=== PATIENT | male | born 1950 | race Caucasian/White ===

== ENCOUNTER 2016-10-11 07:06 | Day surgery (SDC) | payer OTHER ==
[2016-10-11] MEDS ORDERED: LIDOCAINE HCL 1%, 10 MG/ML (20ML VIAL) ONE (12:05)
--- NOTE | 2016-10-11 13:41 | HP ---
Satellite PMH - Chief Complaint Chief Complaint: Here for lt. iliac crest bone marrow biopsy. no symptoms History Source: Patient Limitations to Obtaining History: No Limitations - Past Medical History Allergies/Adverse Reactions: Allergies Allergy/AdvReac Type Severity Reaction Status Date / Time No Known Allergies Allergy Verified 02/16/14 12:23 Cardiovascular: Yes: HTN, Hyperlipdemia - Current Medications Current Medications: Home Medications Medication Instructions Recorded Amox-Tr/K Cl [Augmentin 875-125mg 1 tab PO BID #14 tablet 02/17/14 Tablet -] Satellite Physical Exam - Physical Examination General Appearance: Well Developed, Alert & Oriented x3 Lung: Clear to auscultation, Normal air movement Heart: Regular rate & rhythm, Normal S1, Normal S2 Abdomen: Soft, No tenderness, Normal bowel sounds Extremities: No edema Neurological: Intact Satellite Impression/Plan - Impression/Plan Impression: 66 y/o patient with erythrocytosis. for elective bone marrow biopsy. tolerated procedure well
--- NOTE | 2016-10-11 13:50 | PROC ---
Bone Marrow Aspiration/Biopsy - Consent Risks and Benefits Explained: Yes Consent on Chart: Yes - Procedure Location: Left Iliac Crest Anesthesia: 1% Lidocaine Sterile Technique: Yes Specimen: Obtained Position: Other (right lateral) Patient tolerated procedure: Well with minimal pain Sterile Dressing Applied: Yes
[2016-10-11 14:13] VITALS: TEMP 98.1
[2016-10-11] MEDS ORDERED: ACETAMINOPHEN 325 MG TABLET (FP) PO ONE (14:15)
[2016-10-11 14:24] VITALS: BP 134/84; PULSE 78
--- NOTE | 2016-10-19 13:52 | PATH ---
Surgical Pathology Report Patient Name: MALA RAMSEY Med. Rec. #: [id number] /Age/Gender: 1950 (Age: 66) / M Account: [id number] Location: [facility] Taken: 10/11/2016 Received: 10/11/2016 Reported: 10/19/2016 Physicians: Liliana العلي M.D. Specimen(s) Received A: BONE MARROW BIOPSY B: BONE MARROW CLOT C: BONE MARROW ASPIRATION SMEARS 10 SLIDES D: BONE MARROW BLOOD 2 GREEN TOPS Clinical History Erythrocytosis, r/o MPD Final Diagnosis A,B,C. BONE MARROW CORE BIOPSY, CLOT SECTION AND ASPIRATE SMEAR: NORMOCELLULAR BONE MARROW WITH ADEQUATELY MATURING TRILINEAGE HEMATOPOIESIS (SEE COMMENT). NO INCREASE OF MYELOBLASTS. Comment: The morphologic findings are nonspecific and not diagnostic for involvement by a myeloproliferative neoplasm. Molecular studies did not detect CALR, MPL, or JAK2 aberrations. Correlation with the results of the cytogenetic studies is also needed. Evolving myeloproliferative neoplasm cannot be completely ruled out. Note: This case was seen in consultation with the Hematology Service at [place], [place] ([id number], Dr. Rin Bautista). The above diagnosis and the comments reflect the consultation opinion. The biopsy shows bone marrow with 30-40% cellularity and adequately maturing trilineage hematopoiesis. Aspirate smears are cellular, spicular with focal fixation artifact. The M:E ratio appears within normal limits. There is complete maturation to segmented neutrophils without dysplasia of the myeloid precursors. CD34+ myeloblasts are not increased. The erythroid precursors are with mild NC asynchrony and focal dyspoiesis of the erythroid precursors. Megakaryocytes are proportional to the cellularity without atypia; very rare loose clusters seen as highlighted with CD61 immunostain. No significant lymphoid or plasma cells infiltrates are present. The iron stain shows 2+/3+ stainable iron. No ringed sideroblasts are seen. Reticulin stain focally is slightly increased. The bony trabeculae are unremarkable. The clot section reflects the findings of the core biopsy. D. BONE MARROW, FLOW CYTOMETRY: Flow Cytometry performed and interpreted at [place], [place] ([id number]) showed the following: INTERPRETATION: In the sample analyzed there is no evidence for abnormal myeloid maturation or an increased blast population. There is no evidence for a lymphoproliferative disorder. Phenotype: There is a mixed population of maturing myeloid cells, B cells and T cells. No abnormal myeloid maturation is seen. There is no increase in CD34 positive blasts and they comprise 1% of the total cells. Granulocytes are 84% and monocytes are 2% of total cells. The B-cells (1.5% of total) appear polytypic. The T-cells (5% of total) show no johnson T-cell antigen deletion. MPD FISH STUDIES PERFORMED AND INTERPRETED AT [place], [place] ([id number]) ARE FOLLOWS: INTERPRETATION: No evidence of deletion 7q or monosomy 7 is present. No evidence of trisomy 8(+8) is present. No evidence of deletion 20q12 is present. No BCR/ABL1 t(9;22) translocation is detected. Comments: Correlation with pending cytogenetics ([id number]) is recommended. JAK2 V617F MUTATION ANALYSIS BY PCR PERFORMED AND INTERPRETED AT [place], [place] ([id number]) SHOWED THE FOLLOWING: RESULTS: ONLY THE WILD-TYPE JAK2 SEQUENCE WAS DETECTED. INTERPRETATION: NEGATIVE FOR JAK2 (V617F) MUTATION. CALRETICULIN (CALR) PERFORMED AND INTERPRETED AT [place], [place] ([id number]) SHOWED THE FOLLOWING: RESULTS: No mutation was detected in exon 9 of the calreticulin gene (CALR) by PCR fragment analysis. INTERPRETATION: CALR MUTATION (exon 9): Not Detected. Comment: Among the JAK2 V617F negative MPNs, CALR mutations are detected in 67% of those with ET and 88% of those with PMF and are much less commonly seen in other hematopoietic neoplasms. CALR mutations are mutually exclusive with JAK2 or MPL mutations. CALR mutation testing also has prognostic value since CALR mutations are associated with longer survival and fewer thrombotic events as compared to JAK2 mutations. MPL MUTATION ANALYSIS PERFORMED AND INTERPRETED AT [place], [place] ([id number]) SHOWED THE FOLLOWING: RESULTS: MPL Mutation: NOT DETECTED. INTERPRETATION: Negative for MPL gene mutations. CYTOGENETIC KARYOTYPE ANALYSIS PERFORMED AND INTERPRETED AT [place], [place] ([id number]) SHOWED THE FOLLOWING: RESULTS: 46,XY [20] INTERPRETATION: Normal Male Karyotype. No consistent numerical or structural chromosome abnormalities were observed. Electronically Signed Braden Nicole M.D. Addendum Reported: 10/22/2016 Addendum Diagnosis JAK2 EXON 12 & 13 MUTATION ANALYSIS PERFORMED AND INTERPRETED AT [place], [place] ([id number]) SHOWED THE FOLLOWING: RESULTS: JAK2 EXON 12 MUTATION: NOT DETECTED. JAK2 EXON 13 MUTATION: NOT DETECTED. INTERPRETATION: NEGATIVE FOR JAK2 (EXON 12&13) MUTATIONS Braden Nicole M.D. Gross Description A. Received in formalin, labeled with the patient's name and indicated on the requisition to be a bone marrow biopsy, is a 0.7 cm in length x 0.2 cm in diameter wan, cylindrical portion of bone with attached blood clot. The specimen is submitted in toto in one cassette, following decalcification. B. Received in formalin labeled with the patient's name and indicated on the requisition to be a bone marrow clot, is a 1.4 cm in length x 1.3 cm in diameter red-brown, cylindrical blood clot. The specimen is sectioned and entirely submitted in one cassette. C. Received are 10 bone marrow aspiration smear slides. D. Received are 2 green top tubes and 2 lavender top tubes of bone marrow blood which are sent to [facility]. DL10/11/2016 saudi10/11/2016
== END 2016-10-11 15:00 | disposition home or self-care (01) ==
LOC: JONCNONCHE 07:06 → J7W 11:24 → JONCNONCHE 15:00
PROVIDERS: ATTEND Internal Medicine Hematology & Oncology
PROC: 07DR3ZX Extraction of Iliac Bone Marrow, Percutaneous Approach, Diagnostic (ICD-10-PCS; principal; 2016-10-11)
DX: D75.1 Secondary polycythemia (principal)
CPT/HCPCS: 88300-TC; 88305-TC; 88311-TC; 88313-TC

== ENCOUNTER 2017-08-27 07:10 | Inpatient (IN) | payer OTHER ==
[2017-08-27 07:26] VITALS: BMI 26.4
--- NOTE | 2017-08-27 07:50 | PDOC ---
History of Present Illness <Jacob Retana - Last Filed: 08/27/17 09:53> - General History Source: Patient Exam Limitations: No Limitations - History of Present Illness Initial Comments: 08/27/17 08:32 The patient is a 66-year-old male, with a significant past medical history of nonobstructive CAD, HTN, and hyperlipidemia, who presents to the ED with 1-2 days of left-sided chest pain. The patient describes his chest pain as intermittent, pressure-like in sensation, 2/10 in severity, with radiation to his right arm, lasting approximately 30-40 seconds before resolving on its own. The patient states that he experienced multiple episodes of chest pain last night after eating dinner. He reports having a normal dinner last night that consisted of veggies and beef. He denies engaging in strenuous activity when his pain began. The pain resolved before the patient went to bed. He woke up this morning and the pain recurred and was accompanied by lightheadedness. 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 He is accustomed to walking multiple blocks in [place] and going up and down subway steps without feeling winded, but he does report feeling out of breath while walking up the hill of the Emergency Department parking lot. The patient had a cardiac work up with Dr. Francis 3-4 years ago, which revealed an abnormality. The patient was given a referral for an angiogram, which revealed a 50% occluded artery. He also reports having an echocardiogram a year ago that appeared to be normal. The patient denies any recent travel or long drives. The patient denies diaphoresis or palpitations. He denies any fever, chills, nausea, vomiting, diarrhea, or abdominal pain. Allergies: NKDA Surgery Hx: tonsillectomy Residential Appliance Repair Technician: Dr. Francis PCP: Dr. Pham <Yoko Zeng - Last Filed: 08/27/17 10:01> - General Chief Complaint: Chest Pain Stated Complaint: CHEST DISCOMFORT Time Seen by Provider: 08/27/17 07:24 Past History - Past Medical History COPD: No DVT: No Hypercholesterolemia: Yes Kidney Stones: Yes - Surgical History Cardiac Surgery: Yes (card cath no stent) - Suicide/Smoking/Psychosocial Hx Smoking History: Never smoked Have you smoked in the past 12 months: No Information on smoking cessation initiated: No Hx Alcohol Use: No Drug/Substance Use Hx: No Substance Use Type: None <Jacob Retana - Last Filed: 08/27/17 09:53> <Yoko Zeng - Last Filed: 08/27/17 10:01> - Past Medical History Allergies/Adverse Reactions: Allergies Allergy/AdvReac Type Severity Reaction Status Date / Time No Known Allergies Allergy Verified 08/27/17 07:15 Home Medications: Ambulatory Orders Amlodipine Besylate 5 mg PO DAILY 08/27/17 Atorvastatin Calcium 20 mg PO DAILY 08/27/17 Review of Systems - Review of Systems Constitutional: No: Chills, Fever Respiratory: Yes: SOB with Exertion. No: Cough Cardiac (ROS): Yes: Chest Pain, Lightheadedness. No: Edema, Palpitations, Syncope ABD/GI: No: Nausea, Vomiting Neurological: No: Headache All Other Systems: Reviewed and Negative <AustinfarrahJacob - Last Filed: 08/27/17 09:53> *Physical Exam - Vital Signs Last Vital Signs Temp Pulse Resp BP Pulse Ox 98.2 F 114 H 18 147/89 100 08/27/17 07:16 08/27/17 07:16 08/27/17 07:16 08/27/17 07:16 08/27/17 07:16 <Jacob Retana - Last Filed: 08/27/17 09:53> - Vital Signs Last Vital Signs Temp Pulse Resp BP Pulse Ox 98.2 F 90 15 148/90 98 08/27/17 07:16 08/27/17 07:56 08/27/17 07:56 08/27/17 07:56 08/27/17 07:56 - Physical Exam Comments: 08/27/17 08:37 GENERAL: The patient is awake, alert, and fully oriented, in no acute distress. HEAD: Normal with no signs of trauma. EYES: Pupils equal, round and reactive to light, extraocular movements intact, sclera anicteric, conjunctiva clear with no pallor. ENT: Ears normal, nares patent, oropharynx clear without exudates. Moist mucous membranes. NECK: Normal range of motion, supple without lymphadenopathy, JVD, or masses. LUNGS: Breath sounds equal, clear to auscultation bilaterally. No wheeze/ crackles. HEART: Regular rate and rhythm, normal S1 and S2 without murmur or rub. ABDOMEN: Soft/nontender/nondistended. BS wnl. No guarding or rebound. No palpable masses. No hepatosplenomegaly. EXTREMITIES: Normal range of motion, no edema. No clubbing or cyanosis. No cords, erythema, or tenderness. NEUROLOGICAL: Cranial nerves II through XII grossly intact. Normal speech, normal gait. PSYCH: Normal mood, normal affect. SKIN: Warm, Dry, normal turgor, no rashes or lesions noted. <Yoko Zeng - Last Filed: 08/27/17 10:01> Heart Score/ECG Review #1 ECG reviewed & interpreted by me at: 07:22 General ECG Interpretation: Sinus Rhythm, Normal Rate (96), Normal Intervals ( qtc 434), No acute ischemic changes (unchanged sub-mm ST depression in the inferior and lateral leads) Compared to previous ECG there are: No significant change (c/w 02/16/14) <Jacob Retana - Last Filed: 08/27/17 09:53> ED Treatment Course - LABORATORY CBC & Chemistry Diagram: 08/27/17 07:55 08/27/17 07:56 - RADIOLOGY Radiology Studies Ordered: Category Date Time Status CHEST PA & LAT [RAD] Stat Radiology 08/27/17 07:40 Ordered <Jacob Retana - Last Filed: 08/27/17 09:53> - LABORATORY CBC & Chemistry Diagram: 08/27/17 07:55 08/27/17 07:56 - ADDITIONAL ORDERS Additional order review: 08/27/17 07:55 RBC 5.58 MCV 89.9 MCHC 33.0 RDW 13.3 MPV 8.4 Neutrophils % 65.9 Lymphocytes % 22.0 Monocytes % 8.6 Eosinophils % 2.2 Basophils % 1.3 - RADIOLOGY Radiology Studies Ordered: Chest X-Ray was reviewed by Dr. Retana and over-read by Radiology. Impression: No acute pathology. No significant change. - Medications Given in the ED: ED Medications Discontinued Medications Generic Name Dose Route Start Last Admin Trade Name Freq PRN Reason Stop Dose Admin Aspirin 162 mg 08/27/17 07:53 08/27/17 08:05 Asa - PO 08/27/17 07:54 162 mg ONCE ONE Administration <Yoko Zeng - Last Filed: 08/27/17 10:01> Medical Decision Making - Medical Decision Making 08/27/17 08:26 A portion of this note was documented by scribe services under my direction. I have reviewed the details of the note, within reason, and agree with the documentation with the following case summary and management plan written by me. 66-year-old male with history of hypertension and high cholesterol, nonobstructive CAD with 50% lesion on Performed in 2013, presents now with intermittent chest pain over the last 1-2 days. Pressure-like pain in the left chest, lasts a few minutes and then resolves, occurs at rest but also noted exertion. Patient noted he was fatigued when coming home from work yesterday, and felt dyspnea when walking from the parking lot this morning. This is all new for him, he normally walks several blocks in [place] without difficulty. Vital signs as noted, slightly tachycardic at triage after ambulating from the parking lot, now improved while lying in stretcher No acute distress, pain-free at this time Cardiopulmonary exam is normal No edema 66-year-old male with hypertension and high cholesterol presents with somewhat concerning story for unstable angina, symptom free at this time with normal vital signs. EKG shows chronic inferior and lateral ST depressions, unchanged from 2014. Cardiac workup initiated Aspirin, chest x-ray Will need admission for further cardiac workup, will consult with Dr. 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 08/27/17 09:18 labs wnl, trop negative. cxr nl. Dr. Francis consulted, will admit to Dr. Pham's service. 08/27/17 09:53 Accepted for obs tele by Dr. Garcia, covering Dr. Pham. <Jacob Retana - Last Filed: 08/27/17 09:53> - Medical Decision Making 08/27/17 09:10 Dr. Mukherjee was paged overhead. 08/27/17 09:24 Dr. Pham's answering service was called and we were advised that Hospitalist is covering for Dr. Pham today. Microblog to Admitting Doctor for Hospitalist was sent. <Yoko Zeng - Last Filed: 08/27/17 10:01> *DC/Admit/Observation/Transfer - Discharge Dispostion Admit: Yes <Jacob Retana - Last Filed: 08/27/17 09:53> - Attestations Scribe Attestion: 08/27/17 08:38 Documentation prepared by Yoko Zeng, acting as biomedical technician for Jacob Retana MD. <Yoko Zeng - Last Filed: 08/27/17 10:01> Diagnosis at time of Disposition: Chest pain Qualifiers: Chest pain type: precordial pain Qualified Code(s): R07.2 - Precordial pain - Discharge Dispostion Condition at time of disposition: Fair - Referrals Referrals: Eric Pham MD [Primary Care Provider] - - Patient Instructions - Post Discharge Activity
[2017-08-27] MEDS ORDERED: ASPIRIN 81 MG CHEWABLE TABLETS PO ONE (07:53)
[2017-08-27] MEDS ORDERED: ASPIRIN 81 MG CHEWABLE TABLETS ONE (08:04)
[2017-08-27 08:12] LABS: BASO % 1.3 % (0-2.0); EOS % 2.2 % (0-4.5); HEMATOCRIT 50.2 % (35.4-49); HEMOGLOBIN 16.6 GM/dL (11.7-16.9); MCH 29.7 pg (25.7-33.7); MEAN CELL VOLUME 89.9 fl (80-96); MEAN PLT VOLUME 8.4 fl (7.5-11.1); MONO % 8.6 % (3.8-10.2); NEUT % 65.9 % (42.8-82.8); PLATELET COUNT 207 K/MM3 (134-434); RBC 5.58 M/mm3 (4.00-5.60); RDW 13.3 % (11.9-15.9); WHITE BLOOD COUNT 7.1 K/mm3 (4.0-10.0)
[2017-08-27 08:37] LABS: INR 1.02 (0.82-1.09); PROTHROMBIN TIME (PATIENT) 11.5 SEC (9.98-11.88)
[2017-08-27 08:38] LABS: ALBUMIN 3.7 g/dl (3.4-5.0); ANION GAP 11 (8-16); BILIRUBIN,TOTAL 1.2 mg/dL (0.2-1.0); BLOOD UREA NITROGEN 15 mg/dL (7-18); CALCIUM 8.6 mg/dL (8.5-10.1); CHLORIDE 105 mmol/L (98-107); CO2 24 mmol/L (21-32); CREATININE 0.9 mg/dL (0.7-1.3); GLUCOSE,RANDOM 95 mg/dL (74-106); MAGNESIUM 2.2 mg/dL (1.8-2.4); SGOT/AST 29 U/L (15-37); SGPT/ALT 45 U/L (12-78); SODIUM 140 mmol/L (136-145); TOT PROT 6.9 g/dl (6.4-8.2)
[2017-08-27 08:41] LABS: ALK PHOS 99 U/L (45-117)
--- NOTE | 2017-08-27 09:48 | HP ---
CHIEF COMPLAINT:CP PCP:[facility] HISTORY OF PRESENT ILLNESS: 66yo M with PMH HTN, dyslipidemia and CAD with cardiac cath 3 years ago showing 50% stenosed artery which was medically managed presenting to the Er wtih CP. was in normal state of health until 2 nights ago developed sharp midsternal CP radiating down his R arm at rest. pain self resolved after several minutes and was able to sleep. pt had no recurring episodes of CP during the day at work but felt more fatigued than usual. Last night similar episode occurred. THis Am he develop CP again prior to leaving for work which prompted him to come to the ER. States this pain started spreading across his chest but same intensity as the night before. Developed CP while walking to the ER from the parking lot which is atypical for him. denies fever, chills, N/V/C/D, jaw pain, back pain. Stress test was done 3 years ago due to HTN urgency which was abnormal and went for cardiac cath. no recent medication changes. claims medication compliance. takes meds at bedtime. only took asa today ER course was notable for: (1)asa 162mg (2) (3) Recent Travel:denies PAST MEDICAL HISTORY:as above PAST SURGICAL HISTORY:tonsillectomy Social History: Smoking:denies Alcohol:denies Drugs: denies Family History:not contributory. no heart disease Allergies No Known Allergies Allergy (Verified 08/27/17 07:15) HOME MEDICATIONS: Home Medications Medication Instructions Recorded Amlodipine Besylate 5 mg PO DAILY 08/27/17 Atorvastatin Calcium 20 mg PO DAILY 08/27/17 REVIEW OF SYSTEMS CONSTITUTIONAL: Absent: fever, chills, diaphoresis, generalized weakness, malaise, loss of appetite, weight change HEENT: Absent: rhinorrhea, nasal congestion, throat pain, throat swelling, difficulty swallowing, mouth swelling, ear pain, eye pain, visual changes CARDIOVASCULAR: chest pain Absent: , syncope, palpitations, irregular heart rate, lightheadedness, peripheral edema RESPIRATORY: Absent: cough, shortness of breath, dyspnea with exertion, orthopnea, wheezing, stridor, hemoptysis GASTROINTESTINAL: Absent: abdominal pain, abdominal distension, nausea, vomiting, diarrhea, constipation, melena, hematochezia GENITOURINARY: Absent: dysuria, frequency, urgency, hesitancy, hematuria, flank pain, genital pain MUSCULOSKELETAL: Absent: myalgia, arthralgia, joint swelling, back pain, neck pain SKIN: Absent: rash, itching, pallor HEMATOLOGIC/IMMUNOLOGIC: Absent: easy bleeding, easy bruising, lymphadenopathy, frequent infections ENDOCRINE: Absent: unexplained weight gain, unexplained weight loss, heat intolerance, cold intolerance NEUROLOGIC: Absent: headache, focal weakness or paresthesias, dizziness, unsteady gait, seizure, mental status changes, bladder or bowel incontinence PSYCHIATRIC: Absent: anxiety, depression, suicidal or homicidal ideation, hallucinations. PHYSICAL EXAMINATION Vital Signs - 24 hr 08/27/17 08/27/17 07:16 07:56 Temperature 98.2 F Pulse Rate 114 H Pulse Rate [ 90 Left] Respiratory 18 15 Rate Blood Pressure 147/89 Blood Pressure 148/90 [Right] O2 Sat by Pulse 100 98 Oximetry (%) GENERAL: Awake, alert, and fully oriented, in no acute distress. HEAD: Normal with no signs of trauma. EYES: Pupils equal, round and reactive to light, extraocular movements intact, sclera anicteric, conjunctiva clear. No lid lag. EARS, NOSE, THROAT: Ears normal, nares patent, oropharynx clear without exudates. Moist mucous membranes. NECK: Normal range of motion, supple without lymphadenopathy, JVD, or masses. LUNGS: Breath sounds equal, clear to auscultation bilaterally. No wheezes, and no crackles. No accessory muscle use. HEART: Regular rate and rhythm, normal S1 and S2 without murmur, rub or gallop. ABDOMEN: Soft, nontender, not distended, normoactive bowel sounds, no guarding, no rebound, no masses. No hepatomegaly or splenomegaly. MUSCULOSKELETAL: Normal range of motion at all joints. No bony deformities or tenderness. No CVA tenderness. UPPER EXTREMITIES: 2+ pulses, warm, well-perfused. No cyanosis. No clubbing. No peripheral edema. LOWER EXTREMITIES: 2+ pulses, warm, well-perfused. No calf tenderness. No peripheral edema. NEUROLOGICAL: Cranial nerves II-XII intact. Normal speech. Normal gait. PSYCHIATRIC: Cooperative. Good eye contact. Appropriate mood and affect. SKIN: Warm, dry, normal turgor, no rashes or lesions noted, normal capillary refill. Laboratory Results - last 24 hr 08/27/17 08/27/17 08/27/17 07:55 07:56 07:56 WBC 7.1 RBC 5.58 Hgb 16.6 Hct 50.2 H MCV 89.9 MCH 29.7 MCHC 33.0 RDW 13.3 Plt Count 207 MPV 8.4 Neutrophils % 65.9 Lymphocytes % 22.0 Monocytes % 8.6 Eosinophils % 2.2 Basophils % 1.3 PT with INR 11.50 INR 1.02 Sodium 140 Potassium 4.0 Chloride 105 Carbon Dioxide 24 Anion Gap 11 BUN 15 Creatinine 0.9 Creat Clearance w eGFR > 60 Random Glucose 95 Calcium 8.6 Magnesium 2.2 D Total Bilirubin 1.2 H AST 29 D ALT 45 Alkaline Phosphatase 99 Creatine Kinase 318 H Creatine Kinase Index 1.8 CK-MB (CK-2) 5.978 H Troponin I < 0.02 Total Protein 6.9 Albumin 3.7 EKG, NSR. ST depression unchanged from previous ASSESSMENT/PLAN: 66yo M wtih PMH CAD, HTN and dyslipidemia presented to the ER with CP 1. ACS- Tele observation. continuous cardiac monitoring. trend CE q6H. trend EKG. may require Stress test vs cardiac cath. Cardio consulted 2. HTN-cont norvasc 3. dyslipidemia- cont statin 4. DVT ppx- EAM Visit type - Emergency Visit Emergency Visit: Yes Care time: The patient presented to the Emergency Department on the above date and was hospitalized for further evaluation of their emergent condition. - New Patient This patient is new to me today: Yes Date on this admission: 08/27/17 - Critical Care Critical Care patient: No Hospitalist Screening - Colonoscopy Questionnaire Colonoscopy Questionnaire: Colonoscopy Questionnaire - Patient: 50 - 75 years old and never had a screening colonoscopy: Yes History of colon or rectal polyps, or CA: No History of IBD, Crohn's disease or UC: No History of abdominal radiation therapy as a child: No - Relative: 1 with colon or rectal CA, or polyps at age 60 or younger: Unknown Colon or rectal CA diagnosed at age 45 or younger: Unknown Multiple relatives with colon or rectal CA: Unknown - Outcome: Screening Result: Positive Screen
--- NOTE | 2017-08-27 15:08 | EKG ---
Test Reason : Blood Pressure : / mmHG Vent. Rate : 096 BPM Atrial Rate : 096 BPM P-R Int : 132 ms QRS Dur : 092 ms QT Int : 344 ms P-R-T Axes : 074 046 042 degrees QTc Int : 434 ms NORMAL SINUS RHYTHM POSSIBLE LEFT ATRIAL ENLARGEMENT NONSPECIFIC ST AND T WAVE ABNORMALITY ABNORMAL ECG WHEN COMPARED WITH ECG OF 17-FEB-2014 09:19, NO SIGNIFICANT CHANGE WAS FOUND Confirmed by MD Francis, Jesus ([id number]) on 08/27/2017 3:07:43 PM Referred By: Confirmed By:Jesus Blanco MD
--- NOTE | 2017-08-27 18:16 | CON.CARD ---
Consult Consult Specialty:: cardio - History of Present Illness Chief Complaint: cp History of Present Illness: 66 yo male here with cp. 2 nights ago at rest had "sharp" pain across upper chest. lasted <30 sec. no radiation or assctd diaph, sob, LH. came and went a couple of times, same thing last night. then felt it again as soon as awoke today--again resolved in 30 sec or less. when walked from parking lot to ER today, felt it again briefly. for past several days he's also noticing discomfort in R scapula radiating down R arm at times, not assctd with the cp episodes. he FELT VERY EXHAUSTED AT WORK YEST, VERY UNUSUAL FOR HIM. this sx is not c/w prior sporadic heartburn, no acid or sour taste, no gas/ belching/bloating. ? different quality than in 2014 or not--he can't commit has h/o false positive nuclear done for cp--cath showed non-obstructive dz (2013 ). sx was "mild chest pressure", dizziness with position change, and hi bp 180 at home at that time (see 2014 admission notes) PMH: HPL HTN no cigs - Past Medical History Cardio/Vascular: Yes: HTN, Hyperlipdemia - Past Surgical History Past Surgical History: Yes: Tonsillectomy (as a child) - Alcohol/Substance Use Hx Alcohol Use: No History of Substance Use: reports: None - Smoking History Smoking history: Never smoked Have you smoked in the past 12 months: No Home Medications - Allergies Allergies/Adverse Reactions: Allergies Allergy/AdvReac Type Severity Reaction Status Date / Time No Known Allergies Allergy Verified 08/27/17 07:15 - Home Medications Home Medications: Ambulatory Orders Amlodipine Besylate 5 mg PO DAILY 08/27/17 Aspirin [Children's Aspirin] 81 mg PO DAILY 08/27/17 Atorvastatin Calcium 20 mg PO DAILY 08/27/17 Family Disease History - Family Disease History Family History: Denies (no known cmp) Review of Systems - Review of Systems Constitutional: denies: Chills, Fever Eyes: denies: Eye Pain HENT: denies: Nasal Congestion Neck: denies: Stiffness Cardiovascular: denies: Palpitations Respiratory: denies: Orthopnea, PND Gastrointestinal: denies: Diarrhea, Rectal Bleeding Genitourinary: denies: Burning, Hematuria Musculoskeletal: denies: Muscle Pain Integumentary: denies: Rash Neurological: denies: Numbness, Seizure, Syncope Endocrine: denies: Excessive Sweating Hematology/Lymphatic: denies: Excessive Bleeding Vital Signs: Vital Signs Temperature 98 F 08/27/17 14:03 Pulse Rate 76 08/27/17 14:03 Respiratory Rate 18 08/27/17 14:03 Blood Pressure 142/86 08/27/17 14:03 O2 Sat by Pulse Oximetry (%) 99 08/27/17 11:30 Constitutional: Yes: Well Nourished, No Distress Eyes: No: Sclera Icterus HENT: No: Nasal Congestion Neck: No: Decreased ROM Respiratory: Yes: CTA Bilaterally. No: Accessory Muscle Use, Rales (tele: NSR) , Wheezes Gastrointestinal: Yes: Normal Bowel Sounds. No: Distention, Hepatomegaly, Palpable Mass, Tenderness Cardiovascular: Yes: Regular Rate and Rhythm JVD: No Carotid Bruit: No PMI: Non-Displaced Heart Sounds: Yes: S1, S2. No: Gallop Murmur: No: Systolic Murmur, Diastolic Murmur Musculoskeletal: Yes: Other (No kyphosis) Extremities: No: Cool, Cyanosis Edema: No Peripheral Pulses: 2+ Left Carotid, 2+ Right Carotid, 2+ Left Doralis Pedis, 2+ Right Dorsalis Pedis Integumentary: No: Jaundice Neurological: Yes: Alert, Oriented (x3) Psychiatric: No: Agitated - Other Data Labs, Other Data: CBC, BMP 08/27/17 07:55 08/27/17 07:56 INR, PTT INR 1.02 (0.82-1.09) 08/27/17 07:56 Troponin, BNP 08/27/17 07:56 Troponin I < 0.02 Troponin, BNP 08/27/17 07:56 Troponin I < 0.02 Laboratory Tests 08/27/17 08/27/17 07:55 07:56 WBC 7.1 Hgb 16.6 Plt Count 207 Sodium 140 Potassium 4.0 BUN 15 Creatinine 0.9 AST 29 D ALT 45 Creatine Kinase 318 H Creatine Kinase Index 1.8 Troponin I < 0.02 Assessment/Plan ECG: NSR, 1mm ST depressions inferior leads (horizontal/slowly upsloping)--new vs prior 03/22/16 (no ST elevations) CXR: no acute pathology Echo 10/15: nl LV/EF; nl RV; nl LA; valves WNL; RVSP normal [facility] 2013 (for cp with + nuclear (ST changes and infero-lateral ischemia): LVEDP 15, EF normal. RIGHT-DOMINANT. 50-60% distal RCA, <30% multi-focal lesions. 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 No FFR done on RCA lesion chest pain, nonobstructive CAD 2014: -atypical sx's, brief duration but stuttering over past 48 hrs--? unstable angina. of note he was unusually exhausted at work yesterday, also raising concern for angina -ECG with new changes inferior leads borderline for ischemia -initial trop negative this am, cpk high with normal index--repeat troponin ordered -2013 with false positive nuclear, vs ? distal RCA lesion cause of inferolateral ischemia (no FFR done). doubt sx's are from myocardial bridging given only mild finding at cath -reasonable to repeat cath with FFR of RCA. d/w'd dr mckeon and pt who agree. will d/w interventional cardio re: ? transfer tomorrow for elective [facility] -if 2nd troponin positive, start UFH -continue home aspirin, atorva -will add empiric b-blanca HTN: -on amlodpine 5 at home HPL: -on atorva 20 at home
[2017-08-27] MEDS ORDERED: ATORVASTATIN CA 20 MG TABLET (FP) PO SCH (22:00)
[2017-08-27] MEDS ORDERED: amLODIPine BESYLATE 5 MG TABLET (FP) PO SCH (22:00)
[2017-08-28 06:03] VITALS: TEMP 97.8
[2017-08-28 07:15] LABS: HEMATOCRIT 52.9 % (35.4-49); HEMOGLOBIN 17.6 GM/dL (11.7-16.9); MCH 30.1 pg (25.7-33.7); MCHC 33.3 g/dl (32.0-35.9); MEAN CELL VOLUME 90.4 fl (80-96); MEAN PLT VOLUME 8.3 fl (7.5-11.1); PLATELET COUNT 230 K/MM3 (134-434); RBC 5.84 M/mm3 (4.00-5.60); RDW 13.5 % (11.9-15.9); WHITE BLOOD COUNT 10.2 K/mm3 (4.0-10.0)
[2017-08-28 07:20] LABS: ANION GAP 11 (8-16); BLOOD UREA NITROGEN 12 mg/dL (7-18); CALCIUM 9.1 mg/dL (8.5-10.1); CHLORIDE 103 mmol/L (98-107); CO2 27 mmol/L (21-32); CREATININE 0.9 mg/dL (0.7-1.3); GLUCOSE,RANDOM 96 mg/dL (74-106); MAGNESIUM 2.3 mg/dL (1.8-2.4); PHOSPHOROUS 3.1 mg/dL (2.5-4.9); POTASSIUM 3.8 mmol/L (3.5-5.1); SODIUM 141 mmol/L (136-145)
--- NOTE | 2017-08-28 11:14 | PN ---
Progress Note (short form) - Note Progress Note: s: minimal cp overnight, no sob palps dizzy o: Vital Signs Period Temp Pulse Resp BP Sys/Salas Pulse Ox Last 24 Hr 97.8 F-98.3 F 65-80 18-20 127-154/75-96 98-99 Constitutional: Yes: Well Nourished, No Distress Eyes: No: Sclera Icterus HENT: No: Nasal Congestion Respiratory: Yes: CTA Bilaterally. No: Accessory Muscle Use, Rales (tele: NSR) , Wheezes Gastrointestinal: Yes: Normal Bowel Sounds. No: Distention, Hepatomegaly, Palpable Mass, Tenderness Cardiovascular: Yes: Regular Rate and Rhythm JVD: No Heart Sounds: Yes: S1, S2. No: Gallop Murmur: No: Systolic Murmur, Diastolic Murmur Extremities: No: Cool, Cyanosis Edema: No Integumentary: No: Jaundice Neurological: Yes: Alert, Oriented (x3) Psychiatric: No: Agitated Current Medications Generic Name Dose Route Start Last Admin Trade Name Víctorq PRN Reason Stop Dose Admin Amlodipine Besylate 5 mg 08/27/17 22:00 08/27/17 22:28 Norvasc - PO 5 mg HS REAL Administration Atorvastatin Calcium 20 mg 08/27/17 22:00 08/27/17 22:28 Lipitor - PO 20 mg HS REAL Administration Metoprolol Succinate 50 mg 08/27/17 18:30 08/28/17 09:05 Toprol Xl - PO 50 mg DAILY REAL Administration CBC, BMP 08/28/17 06:35 08/28/17 06:35 tele: sr ECG: NSR, 1mm ST depressions inferior leads (horizontal/slowly upsloping)--new vs prior 03/22/16 (no ST elevations) CXR: no acute pathology Echo 10/15: nl LV/EF; nl RV; nl LA; valves WNL; RVSP normal [facility] 2013 (for cp with + nuclear (ST changes and infero-lateral ischemia): LVEDP 15, EF normal. RIGHT-DOMINANT. 50-60% distal RCA, <30% multi-focal lesions. 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 No FFR done on RCA lesion Assessment/Plan chest pain, nonobstructive CAD 2014: -atypical sx's, brief duration but stuttering over past 48 hrs--? unstable angina. of note he was unusually exhausted at work yesterday, also raising concern for angina -ECG with new changes inferior leads borderline for ischemia -trop neg x2 -2013 with false positive nuclear, vs ? distal RCA lesion cause of inferolateral ischemia (no FFR done). doubt sx's are from myocardial bridging given only mild finding at cath -reasonable to repeat cath with FFR of RCA. for cath later today at [facility]. -continue home aspirin, atorva -added empiric b-blanca HTN: -on amlodpine 5 at home HPL: -on atorva 20 at home
--- NOTE | 2017-08-28 11:30 | DS ---
Physical Exam: SUBJECTIVE: Patient seen and examined, c/o intermittent CP that last seconds and self resolve. not related to activity. no other symptoms. denies CP, SOB< fever, chills, N/V/C/D OBJECTIVE: Vital Signs Period Temp Pulse Resp BP Sys/Salas Pulse Ox Last 24 Hr 97.8 F-98.3 F 65-80 18-20 127-154/75-96 98-99 PHYSICAL EXAM GENERAL: The patient is awake, alert, and fully oriented, in no acute distress. HEAD: Normal with no signs of trauma. EYES: PERRL, extraocular movements intact, sclera anicteric, conjunctiva clear. ENT: Ears normal, nares patent, oropharynx clear without exudates, moist mucous membranes. NECK: Trachea midline, full range of motion, supple. LUNGS: Breath sounds equal, clear to auscultation bilaterally, no wheezes, no crackles, no accessory muscle use. HEART: Regular rate and rhythm, S1, S2 without murmur, rub or gallop. ABDOMEN: Soft, nontender, nondistended, normoactive bowel sounds, no guarding, no rebound, no hepatosplenomegaly, no masses. EXTREMITIES: 2+ pulses, warm, well-perfused, no edema. NEUROLOGICAL: Cranial nerves II through XII grossly intact. Normal speech, gait not observed. PSYCH: Normal mood, normal affect. SKIN: Warm, dry, normal turgor, no rashes or lesions noted. LABS Laboratory Results - last 24 hr 08/27/17 08/28/17 08/28/17 16:20 06:35 06:35 WBC 10.2 H D RBC 5.84 H Hgb 17.6 H Hct 52.9 H MCV 90.4 MCH 30.1 MCHC 33.3 RDW 13.5 Plt Count 230 MPV 8.3 Sodium 141 Potassium 3.8 Chloride 103 Carbon Dioxide 27 Anion Gap 11 BUN 12 Creatinine 0.9 Random Glucose 96 Calcium 9.1 Phosphorus 3.1 Magnesium 2.3 Troponin I < 0.02 HOSPITAL COURSE: Date of Admission:08/27/17 Date of Discharge: 08/28/17 Admitting diagnosis: Unstable angina Pre hospital course 66yo M with PMH HTN, dyslipidemia and CAD with cardiac cath 3 years ago showing 50% stenosed artery which was medically managed presenting to the Er [facility]. was in normal state of health until 2 nights ago developed sharp midsternal CP radiating down his R arm at rest. pain self resolved after several minutes and was able to sleep. pt had no recurring episodes of CP during the day at work but felt more fatigued than usual. Last night similar episode occurred. THis Am he develop CP again prior to leaving for work which prompted him to come to the ER. States this pain started spreading across his chest but same intensity as the night before. Developed CP while walking to the ER from the parking lot which is atypical for him. denies fever, chills, N/V/C/D, jaw pain, back pain. Stress test was done 3 years ago due to HTN urgency which was abnormal and went for cardiac cath. no recent medication changes. claims medication compliance. takes meds at bedtime. only took asa today Subsequent hospital course Tele observation. placed on cardiac monitoring. cardiac enzymes neg x2. started on metoprolol. due to pt history and HPI was transferred for cardiac cath. Minutes to complete discharge: 40 Discharge Summary Reason For Visit: CHEST PAIN Current Active Problems Chest pain (Acute) Condition: Fair - Instructions Referrals: Eric Pham MD [Primary Care Provider] - - Home Medications Comprehensive Discharge Medication List: Ambulatory Orders Amlodipine Besylate 5 mg PO DAILY 08/27/17 Aspirin [Children's Aspirin] 81 mg PO DAILY 08/27/17 Atorvastatin Calcium 20 mg PO DAILY 08/27/17 This patient is new to me today: No Emergency Visit: Yes ED Registration Date: 08/27/17 Care time: The patient presented to the Emergency Department on the above date and was hospitalized for further evaluation of their emergent condition. Critical Care patient: No - Discharge Referral Referred to [facility] Med P.C.: No
[2017-08-28 14:58] VITALS: BP 125/80; PULSE 69
== END 2017-08-28 13:15 | disposition short-term general hospital (02) | DRG 303 ==
LOC: JER 07:10 → JERBED 09:54 → OBSVTOIN 09:54 → J4W 13:58
PROVIDERS: ADMIT Internal Medicine; ATTEND Internal Medicine
DX: I25.10 Atherosclerotic heart disease of native coronary artery without angina pectoris (principal); R07.9 Chest pain, unspecified; I10 Essential (primary) hypertension; E78.5 Hyperlipidemia, unspecified
CPT/HCPCS: 36415; 71046-TC-FY; 80048; 80053; 82550; 82553; 83735; 84100; 84484; 85025; 85027; 85610; 93005; 93010; 99285-25

== ENCOUNTER 2019-08-27 08:27 | Inpatient (IN) | payer OTHER, MEDICARE ==
[2019-08-27 08:41] VITALS: BMI 25.7
[2019-08-27] MEDS ORDERED: SODIUM CHLORIDE 1,000 ML IV STA (09:06)
--- NOTE | 2019-08-27 09:16 | PDOC ---
History of Present Illness - General Chief Complaint: Chest Pain Stated Complaint: CHEST PAIN Time Seen by Provider: 08/27/19 08:53 History Source: Patient Exam Limitations: No Limitations - History of Present Illness Initial Comments: Markel Ortiz is a 68 yo M w a hx of CAD, HTN, and HLD who presents to the ER with 1 week of worsening dyspnea on exertion as well as worsening chest pain on exertion when he has been doing his morning walks for the past few days. He describes his chest pain as a tight sensation and believes it comes on after he does any physical activity. He states he had a cardiac cath a few years ago which showed around a 50% narrowing of a certain vessel and his digital account director Dr. Francis told him to make sure to come into the hospital if he has chest pain which does not go away. He tried waiting a few days for the pain to subside but because it was persistent and did not go away he presented to the hospital for a cardiac evaluation. Denies nausea, vomiting, lightheadedness, radiation, fevers, chills, infection, back pain, headache numbness, tingling, or chills. Allergies: NKDA Surgery Hx: tonsillectomy Barrel Burner: Dr. Francis PCP: Dr. Pham Past History - Past Medical History Allergies/Adverse Reactions: Allergies Allergy/AdvReac Type Severity Reaction Status Date / Time No Known Allergies Allergy Verified 08/27/19 08:39 Home Medications: Ambulatory Orders Aspirin 81 mg PO DAILY 08/27/17 Atorvastatin Ca [Lipitor] 20 mg PO HS 02/18/18 Metoprolol Succinate [Toprol XL -] 25 mg PO DAILY 02/18/18 Amlodipine Besylate 10 mg PO DAILY 08/27/19 Dorzolamide HCl/Timolol Maleat [Dorzolamide-Timolol Eye Drops] 08/27/19 Latanoprost 08/27/19 COPD: No DVT: No HTN: Yes Hypercholesterolemia: Yes Kidney Stones: Yes - Surgical History Cardiac Surgery: Yes (card cath no stent) - Immunization History Immunization Up to Date: Yes - Psycho Social/Smoking Cessation Hx Smoking History: Never smoked Have you smoked in the past 12 months: No Hx Alcohol Use: No Drug/Substance Use Hx: No Substance Use Type: None Review of Systems - Review of Systems Able to Perform ROS?: Yes Comments:: CONSTITUTIONAL: Present: Fatigue Absent: fever, no chills EYES: Absent: visual changes ENT: Absent: ear pain, no sore throat CARDIOVASCULAR: Present: Chest pain Absent: no palpitations RESPIRATORY: Present: SOB Absent: cough GI: Absent: abdominal pain, no nausea, no vomiting, no constipation, no diarrhea GENITOURINARY: Absent: dysuria, no frequency, no hematuria MUSKULOSKELETAL: Absent: back pain, no arthralgia, no myalgia SKIN: Absent: rash NEURO: Absent: headache *Physical Exam - Vital Signs Last Vital Signs Temp Pulse Resp BP Pulse Ox 97.8 F 95 H 18 150/92 99 08/27/19 08:35 08/27/19 08:35 08/27/19 08:35 08/27/19 08:35 08/27/19 08:35 - Physical Exam GENERAL: Well-appearing, well-nourished. Mild distress. HEENT: Normocephalic, atraumatic. PERRL, EOM intact. CARDIOVASCULAR: Normal S1, S2. Regular rate and rhythm. PULMONARY: No evidence of respiratory distress. Lungs clear to auscultation bilaterally. No wheezing, rales or rhonchi. ABDOMEN: Soft, non-distended, non-tender. EXTREMITIES: Normal ROM in all four extremities. No gross deformities. SKIN: Warm, dry. No rash NEUROLOGICAL: No focal neurological deficits. ED Treatment Course - LABORATORY CBC & Chemistry Diagram: 08/27/19 09:05 08/27/19 09:05 - RADIOLOGY Radiology Studies Ordered: Category Date Time Status CHEST PA & LAT [RAD] Stat Radiology 08/27/19 09:06 Ordered Medical Decision Making - Medical Decision Making Markel Ortiz is a 68 yo M w a hx of CAD, HTN, and HLD who presents to the ER with 1 week of worsening dyspnea on exertion as well as worsening chest pain on exertion when he has been doing his morning walks for the past few days. He describes his chest pain as a tight sensation and believes it comes on after he does any physical activity. He states he had a cardiac cath a few years ago which showed around a 50% narrowing of a certain vessel and his digital account director Dr. Francis told him to make sure to come into the hospital if he has chest pain which does not go away. He tried waiting a few days for the pain to subside but because it was persistent and did not go away he presented to the hospital for a cardiac evaluation. Denies nausea, vomiting, lightheadedness, radiation, fevers, chills, infection, back pain, headache numbness, tingling, or chills. Vital Signs Temp Pulse Resp BP Pulse Ox 97.8 F 95 H 18 150/92 99 08/27/19 08:35 08/27/19 08:35 08/27/19 08:35 08/27/19 08:35 08/27/19 08:35 DDx IBNLT: ACS - unstable vs stable vs NSTEMI, arrythmia, electrolyte/metabolic disturbance, heart failure, pna,pneumothorax Plan: Labs, EKG, CXR, cardiac Consult, Tele Obs EKG: NS rate of 84, narrow complex, normal axis, possible LAE, no ST elevations or depressions, no Q waves, DE 136, QTc 444 Cardiac Consult: Spoke with Dr. Francis who is on board with the plan for tele obs admission CXR: No acute pathology Labs: Trop negative, otherwise unremarkable. Dispo: Tele obs Discharge - Discharge Information Problems reviewed: Yes Clinical Impression/Diagnosis: Chest pain Qualifiers: Chest pain type: unspecified Qualified Code(s): R07.9 - Chest pain, unspecified Condition: Stable - Admission Yes - Follow up/Referral - Patient Discharge Instructions - Post Discharge Activity
[2019-08-27 09:44] LABS: BASO % 1.1 % (0-2.0); EOS % 2.2 % (0-4.5); HEMATOCRIT 49.6 % (35.4-49); HEMOGLOBIN 16.6 GM/dL (11.7-16.9); LYMPH % 21.1 % (8-40); MCH 30.3 pg (25.7-33.7); MCHC 33.6 g/dl (32.0-35.9); MEAN CELL VOLUME 90.4 fl (80-96); MONO % 10.7 % (3.8-10.2); NEUT % 64.9 % (42.8-82.8); PLATELET COUNT 232 K/MM3 (134-434); RBC 5.49 M/mm3 (4.00-5.60); RDW 13.3 % (11.9-15.9)
--- NOTE | 2019-08-27 09:52 | PDOC ---
Attending Attestation - Resident Resident Name: Agapito Vasquez - ED Attending Attestation I have performed the following: I have examined & evaluated the patient, The case was reviewed & discussed with the resident, I agree w/resident's findings & plan, Exceptions are as noted - HPI HPI: 08/27/19 09:33 68yo male with intermittent cp and sob. States sob while exercising which was walking outside. CP last night after dinner- pressure across his chest. Hx of cad on a cath 2 years ago. States chest pressure continued throughout the night and again had it this am. NO assoc diaphoresis, no nausea. No sob. Still feels pressure now. L side of his chest pressure to his sternum. No arm pain. Cards: Dr. Francis. PMD Dr. Dee - Physicial Exam PE: 08/27/19 09:35 Gen: aaox3, nad heart: +s1s2 reg lungs: cta b/l abd: soft, nt/nd +bs ext: no c/c/e - Medical Decision Making 08/27/19 09:36 a/p: 68yo male with cp -concern for acs given hx of abnl cath and prior cad -took a baby asa this am, will give 3 more baby asa -will send trop, ekg, cxr -will need tele obs for repeat trops and discussion with cards - Dr. Francis -pt currently cp free 08/27/19 10:29 trop neg cxr neg resident discussed with cards who agrees with the plan microblog sent to [facility] 08/27/19 10:43 resident discussed the case with [facility] who accepts pt to service Heart Score/ECG Review - ECG Intrepretation Comment:: 08/27/19 09:52 sinus at 84, nl axis, nl interval, no acute st/t wave findings, t wave inversions III which are nonspecific
[2019-08-27 10:03] LABS: PROTHROMBIN TIME (PATIENT) 11.8 SEC (9.7-13.0)
[2019-08-27 10:16] LABS: ALBUMIN 3.7 g/dl (3.4-5.0); ALK PHOS 103 U/L (45-117); ANION GAP 5 MMOL/L (8-16); BILIRUBIN,TOTAL 0.7 mg/dL (0.2-1); BLOOD UREA NITROGEN 15.6 mg/dL (7-18); CHLORIDE 108 mmol/L (98-107); CO2 27 mmol/L (21-32); CREATININE 0.9 mg/dL (0.55-1.3); GLUCOSE,RANDOM 91 mg/dL (74-106); MAGNESIUM 2.2 mg/dL (1.8-2.4); N-TERMINAL BNP 18.4 pg/ml (5-125); PHOSPHOROUS 2.9 mg/dL (2.5-4.9); POTASSIUM 4.2 mmol/L (3.5-5.1); SGOT/AST 17 U/L (15-37); SGPT/ALT 40 U/L (13-61); SODIUM 140 mmol/L (136-145); TOT PROT 6.7 g/dl (6.4-8.2)
[2019-08-27 10:23] LABS: PH,URINE 7.5 (5.0-8.0); URINE APPEARANCE CLEAR; URINE BILIRUBIN NEGATIVE (NEGATIVE); URINE COLOR YELLOW; URINE GLUCOSE (UA) NEGATIVE (NEGATIVE); URINE KETONE NEGATIVE (NEGATIVE); URINE LEUK ESTERASE NEGATIVE (NEGATIVE); URINE NITRITE NEGATIVE (NEGATIVE); URINE PROTEIN NEGATIVE (NEGATIVE); URINE UROBILINOGEN 0.2 mg/dL (0.2-1.0)
--- NOTE | 2019-08-27 11:15 | HP ---
CHIEF COMPLAINT: chest pain PCP: Vero HISTORY OF PRESENT ILLNESS: 68 year old, pleasant male with a history of coronary artery disease, hypertension, and hyperlipidemia presented to the hospital for 5-6 hour history of chest pain. Patient reported that the pain began at 2am last night, located around the left axilla, midsternal, and on the right superior chest. Reported it at a 2/10 in severity, non-radiating, non-pluritic. At around 7am this morning, patient states that he felt the pain more pronounced, around a 5/10 that became worse after he got up. Reports that it is mainly positional in nature but cannot associate it with a particular position. States that it does hurt worse when he touches the areas of pain. He states that he walks 3-4x per week and felt slightly more winded when doing his daily walk on Saturday. On Saturday, he felt indigestion and felt slightly tired but overall normal, and states his symptoms did not really begin until last night. His last echocardiogram was 3 years ago in 2017, which he reports was normal. He had a cardiac catheterization 2.5 years ago and was found to have a 50% stenosis of one of his coronary arteries per the patient. Currently, patient has 2/10 chest pain and denies nausea, vomiting, diarrhea, fevers, chills, abdominal pain, headache, peripheral edema, orthopnea, dyspnea on exertion. He is able to walk. 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 Allergies No Known Allergies Allergy (Verified 08/27/19 08:39) HOME MEDICATIONS: Home Medications Medication Instructions Recorded Aspirin 81 mg PO DAILY 08/27/17 Atorvastatin Ca [Lipitor] 20 mg PO HS 02/18/18 Metoprolol Succinate [Toprol XL -] 25 mg PO DAILY 02/18/18 Amlodipine Besylate 10 mg PO DAILY 08/27/19 Dorzolamide HCl/Timolol Maleat 08/27/19 [Dorzolamide-Timolol Eye Drops] Latanoprost 08/27/19 REVIEW OF SYSTEMS CONSTITUTIONAL: Absent: fever, chills, diaphoresis, generalized weakness, malaise, loss of appetite, weight change HEENT: Absent: rhinorrhea, nasal congestion, throat pain, throat swelling, difficulty swallowing, mouth swelling, ear pain, eye pain, visual changes CARDIOVASCULAR: chest pain Absent: syncope, palpitations, irregular heart rate, lightheadedness, peripheral edema RESPIRATORY: Absent: cough, shortness of breath, dyspnea with exertion, orthopnea, wheezing, stridor, hemoptysis GASTROINTESTINAL: Absent: abdominal pain, abdominal distension, nausea, vomiting, diarrhea, constipation, melena, hematochezia GENITOURINARY: Absent: dysuria, frequency, urgency, hesitancy, hematuria, flank pain, genital pain MUSCULOSKELETAL: Absent: myalgia, arthralgia, joint swelling, back pain, neck pain SKIN: Absent: rash, itching, pallor HEMATOLOGIC/IMMUNOLOGIC: Absent: easy bleeding, easy bruising, lymphadenopathy, frequent infections ENDOCRINE: Absent: unexplained weight gain, unexplained weight loss, heat intolerance, cold intolerance NEUROLOGIC: Absent: headache, focal weakness or paresthesias, dizziness, unsteady gait, seizure, mental status changes, bladder or bowel incontinence PSYCHIATRIC: Absent: anxiety, depression, suicidal or homicidal ideation, hallucinations. PHYSICAL EXAMINATION Vital Signs - 24 hr 08/27/19 08/27/19 08:35 09:15 Temperature 97.8 F Pulse Rate 95 H Respiratory 18 Rate Blood Pressure 150/92 O2 Sat by Pulse 99 99 Oximetry (%) GENERAL: A&Ox3, no acute distress EYES: PERRLA, EOMI ENT: Moist mucus membranes NECK: No JVD LUNGS: CTA, no wheezes HEART: RRR, no murmurs ABDOMEN: Soft, nontender, BS present MUSCULOSKELETAL: No CVA Tenderness EXTREMITIES: 2+ pulses, no edema. NEUROLOGICAL: Cranial nerves II-XII intact. Laboratory Results - last 24 hr 08/27/19 08/27/19 08/27/19 09:05 09:05 09:05 WBC 7.0 RBC 5.49 Hgb 16.6 Hct 49.6 H MCV 90.4 MCH 30.3 MCHC 33.6 RDW 13.3 Plt Count 232 MPV 8.0 Absolute Neuts (auto) 4.6 Neutrophils % 64.9 Lymphocytes % 21.1 Monocytes % 10.7 H Eosinophils % 2.2 Basophils % 1.1 Nucleated RBC % 0 PT with INR 11.80 INR 1.00 PTT (Actin FS) 33.0 Sodium 140 Potassium 4.2 Chloride 108 H Carbon Dioxide 27 Anion Gap 5 L BUN 15.6 Creatinine 0.9 Est GFR (CKD-EPI)AfAm 102.79 Est GFR (CKD-EPI)NonAf 88.69 Random Glucose 91 Calcium 9.0 Phosphorus 2.9 Magnesium 2.2 Total Bilirubin 0.7 AST 17 ALT 40 Alkaline Phosphatase 103 Creatine Kinase 126 Troponin I < 0.02 B-Natriuretic Peptide 18.4 Total Protein 6.7 Albumin 3.7 Urine Color Urine Appearance Urine pH Ur Specific [place] Urine Protein Urine Glucose (UA) Urine Ketones Urine Blood Urine Nitrite Urine Bilirubin Urine Urobilinogen Ur Leukocyte Esterase 08/27/19 10:00 WBC RBC Hgb Hct MCV MCH MCHC RDW Plt Count MPV Absolute Neuts (auto) Neutrophils % Lymphocytes % Monocytes % Eosinophils % Basophils % Nucleated RBC % PT with INR INR PTT (Actin FS) Sodium Potassium Chloride Carbon Dioxide Anion Gap BUN Creatinine Est GFR (CKD-EPI)AfAm Est GFR (CKD-EPI)NonAf Random Glucose Calcium Phosphorus Magnesium Total Bilirubin AST ALT Alkaline Phosphatase Creatine Kinase Troponin I B-Natriuretic Peptide Total Protein Albumin Urine Color Yellow Urine Appearance Clear Urine pH 7.5 Ur Specific [place] 1.016 Urine Protein Negative Urine Glucose (UA) Negative Urine Ketones Negative Urine Blood Negative Urine Nitrite Negative Urine Bilirubin Negative Urine Urobilinogen 0.2 Ur Leukocyte Esterase Negative ASSESSMENT/PLAN: 68 year old, pleasant male with a history of coronary artery disease, hypertension, and hyperlipidemia presented to the hospital for 5-6 hour history of chest pain and admitted for evaluation of acute coronary syndrome #Chest pain: patient has cardiac risk factors, including a recent catheterization 2.5 years ago with reported 50% stenosis in one of the coronaries. He additionally has hypertension and hyperlipidemia which additionally put him at risk of coronary events. Will admit to rule out acute coronary syndrome -initial troponin was negative and EKG unremarkable for cardiac ischemia -repeat troponin at 3pm -TSH and lipid profile ordered -monitor on telemetry -sestamibi nuclear stress test ordered, will keep NPO after midnight and hold beta blockers/CCBs prior to nuclear stress -continue aspirin 81 -continue toprol XL 25 daily (hold tomorrow for stress test) -echocardiogram in 2017 was largely unremarkable, will repeat echocardiogram on this admission -nitroglycerin for pain -Dr. Francis consulted #Hypertension: patient is hypertensive today at 150/92, however he did not take his medications today -give amlodipine 10mg and toprol XL 25 today -hold BB and CCBs -continue to monitor pressure #Hyperlipidemia: will assess lipid profile now -continue atorvastatin #FEN -no standing fluids -cholesterol diet for now, NPO after midnight for stress -lytes normal #Prophylaxis -lovenox 40 daily #Disposition -admit tele obs, anticipate discharge tomorrow after stress test if normal Visit type - Emergency Visit Emergency Visit: Yes ED Registration Date: 08/27/19 Care time: The patient presented to the Emergency Department on the above date and was hospitalized for further evaluation of their emergent condition. - New Patient This patient is new to me today: No - Critical Care Critical Care patient: No ATTENDING PHYSICIAN STATEMENT I saw and evaluated the patient. I reviewed the resident's note and discussed the case with the resident. I agree with the resident's findings and plan as documented. SUBJECTIVE: OBJECTIVE: ASSESSMENT AND PLAN:
[2019-08-27] MEDS ORDERED: amLODIPine BESYLATE 10 MG TABLET (FP) PO SCH (11:30)
[2019-08-27] MEDS ORDERED: amLODIPine BESYLATE 5 MG TABLET (FP) ONE (11:49)
[2019-08-27] MEDS ORDERED: ENOXAPARIN NA (PORCINE) 40 MG/0.4 ML DISP.SYRIN SQ ONE (11:50)
[2019-08-27] MEDS: ENOXAPARIN NA (PORCINE) 40 MG/0.4 ML DISP.SYRIN SQ SCH (11:50)
[2019-08-27] MEDS ORDERED: NITROGLYCERIN SUBLINGUAL 1/200 0.3 MG BTL SL ONE (11:51)
[2019-08-27] MEDS ORDERED: metoPROLOL SUCCINATE 25 MG TAB.SR.24H (FP) PO SCH ×2 (12:15→13:45)
[2019-08-27 13:36] LABS: CHOLESTEROL 162 mg/dL (50-200); HDL CHOLESTEROL 69 mg/dL (40-60); LDL CHOLESTEROL (ONLY SJRH) 73 mg/dL (5-100); TRIGLYCERIDES 82 mg/dL (0-150)
--- NOTE | 2019-08-27 14:02 | CON.CARD ---
Cardiology Consult (text) - Consultation Consultation Note: cc: cp hpi: 68 m hx htn, hld, non obs cad, here with cp. Last night after eating noticed sharp mild pain in left chest. Was intermittent throughout the night so came to ER today. CP resolved now. No associated sxs. No sob palps dizzy loc pnd orthopnea le edema. No anginal sxs. Sees me for cardiology. pmh: per hpi psh: cath social: no tob fam: no premature cad, scd ros: per hpi; all others nl meds: Home Medications Medication Instructions Recorded Aspirin 81 mg PO DAILY 08/27/17 Atorvastatin Ca [Lipitor] 20 mg PO HS 02/18/18 Metoprolol Succinate [Toprol XL -] 25 mg PO DAILY 02/18/18 Amlodipine Besylate 10 mg PO DAILY 08/27/19 Dorzolamide HCl/Timolol Maleat 08/27/19 [Dorzolamide-Timolol Eye Drops] Latanoprost 08/27/19 pe: Vital Signs Period Temp Pulse Resp BP Sys/[place] Pulse Ox Last 24 Hr 97.8 F-97.9 F 75-95 18-20 144-150/91-92 98-99 nad no jvd rrr s1s2 no mrg cta bl nl eff aao3 no le e/c/c abd nt nd pos bs no jaundice diaphoresis pos dp pt no carotid bruits Laboratory Last Values WBC 7.0 K/mm3 (4.0-10.0) 08/27/19 09:05 RBC 5.49 M/mm3 (4.00-5.60) 08/27/19 09:05 Hgb 16.6 GM/dL (11.7-16.9) 08/27/19 09:05 Hct 49.6 % (35.4-49) H 08/27/19 09:05 MCV 90.4 fl (80-96) 08/27/19 09:05 MCH 30.3 pg (25.7-33.7) 08/27/19 09:05 MCHC 33.6 g/dl (32.0-35.9) 08/27/19 09:05 RDW 13.3 % (11.9-15.9) 08/27/19 09:05 Plt Count 232 K/MM3 (134-434) 08/27/19 09:05 MPV 8.0 fl (7.5-11.1) 08/27/19 09:05 Absolute Neuts (auto) 4.6 K/mm3 (1.5-8.0) 08/27/19 09:05 Neutrophils % 64.9 % (42.8-82.8) 08/27/19 09:05 Lymphocytes % 21.1 % (8-40) 08/27/19 09:05 Monocytes % 10.7 % (3.8-10.2) H 08/27/19 09:05 Eosinophils % 2.2 % (0-4.5) 08/27/19 09:05 Basophils % 1.1 % (0-2.0) 08/27/19 09:05 Nucleated RBC % 0 % (0-0) 08/27/19 09:05 PT with INR 11.80 SEC (9.7-13.0) 08/27/19 09:05 INR 1.00 (0.83-1.09) 08/27/19 09:05 PTT (Actin FS) 33.0 SECONDS (25.2-36.5) 08/27/19 09:05 Sodium 140 mmol/L (136-145) 08/27/19 09:05 Potassium 4.2 mmol/L (3.5-5.1) 08/27/19 09:05 Chloride 108 mmol/L (98-107) H 08/27/19 09:05 Carbon Dioxide 27 mmol/L (21-32) 08/27/19 09:05 Anion Gap 5 MMOL/L (8-16) L 08/27/19 09:05 BUN 15.6 mg/dL (7-18) 08/27/19 09:05 Creatinine 0.9 mg/dL (0.55-1.3) 08/27/19 09:05 Est GFR (CKD-EPI)AfAm 102.79 08/27/19 09:05 Est GFR (CKD-EPI)NonAf 88.69 08/27/19 09:05 Random Glucose 91 mg/dL (74-106) 08/27/19 09:05 Calcium 9.0 mg/dL (8.5-10.1) 08/27/19 09:05 Phosphorus 2.9 mg/dL (2.5-4.9) 08/27/19 09:05 Magnesium 2.2 mg/dL (1.8-2.4) 08/27/19 09:05 Total Bilirubin 0.7 mg/dL (0.2-1) 08/27/19 09:05 AST 17 U/L (15-37) 08/27/19 09:05 ALT 40 U/L (13-61) 08/27/19 09:05 Alkaline Phosphatase 103 U/L (45-117) 08/27/19 09:05 Creatine Kinase 126 U/L (26-308) 08/27/19 09:05 Troponin I < 0.02 ng/ml (0.00-0.05) 08/27/19 09:05 B-Natriuretic Peptide 18.4 pg/ml (5-125) 08/27/19 09:05 Total Protein 6.7 g/dl (6.4-8.2) 08/27/19 09:05 Albumin 3.7 g/dl (3.4-5.0) 08/27/19 09:05 Triglycerides 82 mg/dL (0-150) 08/27/19 12:30 Cholesterol 162 mg/dL (50-200) 08/27/19 12:30 Total LDL Cholesterol 73 mg/dL (5-100) 08/27/19 12:30 HDL Cholesterol 69 mg/dL (40-60) H 08/27/19 12:30 TSH 1.18 uIU/ml (0.358-3.74) 08/27/19 12:30 Urine Color Yellow 08/27/19 10:00 Urine Appearance Clear 08/27/19 10:00 Urine pH 7.5 (5.0-8.0) 08/27/19 10:00 Ur Specific [place] 1.016 (1.010-1.035) 08/27/19 10:00 Urine Protein Negative (NEGATIVE) 08/27/19 10:00 Urine Glucose (UA) Negative (NEGATIVE) 08/27/19 10:00 Urine Ketones Negative (NEGATIVE) 08/27/19 10:00 Urine Blood Negative (NEGATIVE) 08/27/19 10:00 Urine Nitrite Negative (NEGATIVE) 08/27/19 10:00 Urine Bilirubin Negative (NEGATIVE) 08/27/19 10:00 Urine Urobilinogen 0.2 mg/dL (0.2-1.0) 08/27/19 10:00 Ur Leukocyte Esterase Negative (NEGATIVE) 08/27/19 10:00 cath 08/2017: non obs cad, mid lad myocardial bridge echo 08/2018: wnl ecg: sr nl intervals no ischemic changes cxr: clear lungs a/p: 68 m hx htn, hld, non obs cad, here with cp. cp: -atypical, resolved -no signs acs thus far -cont tele, asia -check echo and mibi htn: -cont home bb, ccb hld: -cont statin cad: -hx of non obs cad with myocardial bridging -plan as above. -cont bb, statin, asa
--- NOTE | 2019-08-27 14:52 | PN ---
Teaching Attending Note Name of Resident: Gene Tom ATTENDING PHYSICIAN STATEMENT I saw and evaluated the patient. I reviewed the resident's note and discussed the case with the resident. I agree with the resident's findings and plan as documented. SUBJECTIVE: Some mild residual point tenderness L chest wall. No SOB/cough/ sputum/hemoptysis. OBJECTIVE: Afebrile, Hemodynamically Stable. Last Vital Signs Temp Pulse Resp BP Pulse Ox 97.9 F 75 20 144/91 98 08/27/19 11:45 08/27/19 11:45 08/27/19 11:45 08/27/19 11:45 08/27/19 11:45 HEENT - Atraumatic, normocephalic. Heart - S1, S2, RRR Lungs - clear to auscultation. Tender chest wall. Abdomen - Soft, non-tender. Bowel sounds normal. Extremities - No edema, no calf tenderness. Neuro - AAO x 3. Tone/Power normal all 4 extremities. Laboratory Results - last 24 hr 08/27/19 08/27/19 08/27/19 09:05 09:05 09:05 WBC 7.0 RBC 5.49 Hgb 16.6 Hct 49.6 H MCV 90.4 MCH 30.3 MCHC 33.6 RDW 13.3 Plt Count 232 MPV 8.0 Absolute Neuts (auto) 4.6 Neutrophils % 64.9 Lymphocytes % 21.1 Monocytes % 10.7 H Eosinophils % 2.2 Basophils % 1.1 Nucleated RBC % 0 PT with INR 11.80 INR 1.00 PTT (Actin FS) 33.0 Sodium 140 Potassium 4.2 Chloride 108 H Carbon Dioxide 27 Anion Gap 5 L BUN 15.6 Creatinine 0.9 Est GFR (CKD-EPI)AfAm 102.79 Est GFR (CKD-EPI)NonAf 88.69 Random Glucose 91 Calcium 9.0 Phosphorus 2.9 Magnesium 2.2 Total Bilirubin 0.7 AST 17 ALT 40 Alkaline Phosphatase 103 Creatine Kinase 126 Troponin I < 0.02 B-Natriuretic Peptide 18.4 Total Protein 6.7 Albumin 3.7 Triglycerides Cholesterol Total LDL Cholesterol HDL Cholesterol TSH Urine Color Urine Appearance Urine pH Ur Specific [place] Urine Protein Urine Glucose (UA) Urine Ketones Urine Blood Urine Nitrite Urine Bilirubin Urine Urobilinogen Ur Leukocyte Esterase 08/27/19 08/27/19 08/27/19 10:00 12:30 12:30 WBC RBC Hgb Hct MCV MCH MCHC RDW Plt Count MPV Absolute Neuts (auto) Neutrophils % Lymphocytes % Monocytes % Eosinophils % Basophils % Nucleated RBC % PT with INR INR PTT (Actin FS) Sodium Potassium Chloride Carbon Dioxide Anion Gap BUN Creatinine Est GFR (CKD-EPI)AfAm Est GFR (CKD-EPI)NonAf Random Glucose Calcium Phosphorus Magnesium Total Bilirubin AST ALT Alkaline Phosphatase Creatine Kinase Troponin I B-Natriuretic Peptide Total Protein Albumin Triglycerides 82 Cholesterol 162 Total LDL Cholesterol 73 HDL Cholesterol 69 H TSH 1.18 Urine Color Yellow Urine Appearance Clear Urine pH 7.5 Ur Specific [place] 1.016 Urine Protein Negative Urine Glucose (UA) Negative Urine Ketones Negative Urine Blood Negative Urine Nitrite Negative Urine Bilirubin Negative Urine Urobilinogen 0.2 Ur Leukocyte Esterase Negative Current Medications Generic Name Dose Route Start Last Admin Trade Name Freq PRN Reason Stop Dose Admin Amlodipine Besylate 10 mg 08/27/19 11:30 08/27/19 11:50 Norvasc - PO 08/28/19 05:00 10 mg DAILY [facility] Administration Aspirin 81 mg 08/28/19 10:00 Asa - PO DAILY [facility] Atorvastatin Calcium 20 mg 08/27/19 22:00 Lipitor - PO [facility] Enoxaparin Sodium 40 mg 08/27/19 11:30 08/27/19 11:50 Lovenox - SQ 40 mg DAILY [facility] Administration Metoprolol Succinate 25 mg 08/27/19 13:45 Toprol Xl - PO 08/28/19 12:14 DAILY [facility] Home Medications Medication Instructions Recorded Aspirin 81 mg PO DAILY 08/27/17 Atorvastatin Ca [Lipitor] 20 mg PO HS 02/18/18 Metoprolol Succinate [Toprol XL -] 25 mg PO DAILY 02/18/18 Amlodipine Besylate 10 mg PO DAILY 08/27/19 Dorzolamide HCl/Timolol Maleat 08/27/19 [Dorzolamide-Timolol Eye Drops] Latanoprost 08/27/19 ASSESSMENT AND PLAN: 68 year old male with history of HTN, HLD, CAD 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 No associated SOB/ diaphoresis/lightheadedness/nausea/vomiting. No cough/sputum/hemoptysis. Normally decent exercise tolerance without symptoms, but patient reports being more SOB on less exertion yesterday while taking his walk, without associated CP. 1. Atypical CP, likely musculoskeletal. ECG - NSR, no acute changes. Trop I negative. In setting of CAD history (s/p TERRITORY ACCOUNT REPRESENTATIVE 2018 - mid lad myocardial bridge), admit to exclude coronary cause. Telemonitoring Serial TropI Echo Cardiology consult Continue Aspirin/BB/Statin. NTG PRN. NPO MN for MIBI in AM. 2. HTN - continue Norvasc, Toprol XL (will hold in AM prior to MIBI). 3. HLD - Continue Atorvastatin. LDL 73/HDL 69. DVT Px - Lovenox SQ
--- NOTE | 2019-08-27 15:14 | ECHO ---
Name: MALA RAMSEY Exam:Adult Echocardiogram Study Date: 08/27/2019 02:35 PM Age: 68 yrs Reason For Study: r/o acs with known cad MMode/2D Measurements & Calculations IVSd: 0.92 cm Ao root diam: 3.3 cm LVIDd: 4.9 cm LA dimension: 3.0 cm LVIDs: 3.0 cm LVPWd: 1.1 cm LVPWs: 1.5 cm EDV(Teich): 112.9 ml ESV(Teich): 35.2 ml LVOT diam: 2.1 cm RV S Abhinav: 13.7 cm/sec Doppler Measurements & Calculations MV E max abhinav: 69.4 cm/sec Ao V2 max: 123.6 cm/sec MV A max abhinav: 95.6 cm/sec Ao max P.1 mmHg MV E/A: 0.73 ASHELY(V,D): 2.7 cm2 MV dec time: 0.22 sec LV V1 max P.5 mmHg TR max abhinav: 179.4 cm/sec LV V1 max: 94.1 cm/sec TR max P.9 mmHg PA V2 max: 113.3 cm/sec Med Peak E' Abhinav: 7.0 cm/sec PA max P.2 mmHg Med E/e': 10.0 Lat Peak E' Abhinav: 9.1 cm/sec Lat E/e': 7.6 Procedure A complete two-dimensional transthoracic echocardiogram was performed (2D, M-mode, Doppler and color flow Doppler). Left Ventricle The left ventricular size, thickness and function are normal. The left ventricular ejection fraction is normal. Ejection Fraction = 60-65%. The left ventricular wall motion is normal. Right Ventricle The right ventricle is normal in size and function. Atria Normal left and right atrial size and function. Mitral Valve There is no mitral regurgitation noted. Tricuspid Valve There is trace tricuspid regurgitation. There was insufficient TR detected to calculate RV systolic p ressure. Aortic Valve No hemodynamically significant valvular aortic stenosis. No aortic regurgitation is present. Pulmonic Valve There is no pulmonic valvular regurgitation. Great Vessels The aortic root is normal size. Pericardium/Pleura There is no pericardial effusion. Interpretation Summary The left ventricular size, thickness and function are normal The right ventricle is normal in size and function. There is trace tricuspid regurgitation. MD Scott Francis 08/27/2019 03:14 PM
--- NOTE | 2019-08-27 16:11 | EKG ---
Test Reason : Blood Pressure : / mmHG Vent. Rate : 084 BPM Atrial Rate : 084 BPM P-R Int : 136 ms QRS Dur : 094 ms QT Int : 376 ms P-R-T Axes : 079 033 040 degrees QTc Int : 444 ms NORMAL SINUS RHYTHM POSSIBLE LEFT ATRIAL ENLARGEMENT BORDERLINE ECG WHEN COMPARED WITH ECG OF 18-FEB-2018 09:55, NO SIGNIFICANT CHANGE WAS FOUND Confirmed by CAITIE WASHBURN MD ([id number]) on 08/27/2019 4:10:48 PM Referred By: Confirmed By:CAITIE WASHBURN MD
[2019-08-27] MEDS ORDERED: ATORVASTATIN CA 20 MG TABLET (FP) PO SCH (22:00)
[2019-08-28] MEDS ORDERED: ASPIRIN 81 MG CHEWABLE TABLETS PO SCH (10:00)
--- NOTE | 2019-08-28 11:02 | PN ---
Progress Note, Physician Chief Complaint: no further CP Enzymes negative TELE: NSR, VPCs History of Present Illness: For stress MPI today - Current Medication List Current Medications: Active Medications Aspirin (Asa -) 81 mg PO DAILY [facility] Atorvastatin Calcium (Lipitor -) 20 mg PO HS [facility] Last Admin: 08/27/19 21:54 Dose: 20 mg Enoxaparin Sodium (Lovenox -) 40 mg SQ DAILY [facility] Last Admin: 08/27/19 11:50 Dose: 40 mg Metoprolol Succinate (Toprol Xl -) 25 mg PO DAILY [facility] Stop: 08/28/19 12:14 - Objective Vital Signs: Vital Signs Temperature 97.9 F 08/28/19 06:00 Pulse Rate 68 08/28/19 06:00 Respiratory Rate 20 08/28/19 06:00 Blood Pressure 107/72 08/28/19 06:00 O2 Sat by Pulse Oximetry (%) 98 08/27/19 19:00 Constitutional: Yes: No Distress, Calm Cardiovascular: Yes: Regular Rate and Rhythm Respiratory: Yes: CTA Bilaterally Gastrointestinal: Yes: Soft (nt) Edema: No Neurological: Yes: Alert, Oriented ...Motor Strength: WNL Labs: CBC, BMP 08/27/19 09:05 08/27/19 09:05 INR, PTT INR 1.00 (0.83-1.09) 08/27/19 09:05 Laboratory Tests 08/27/19 08/27/19 09:05 21:45 Troponin I < 0.02 < 0.02 - ....Imaging EKG: Image Reviewed Assessment/Plan echo 08/2018: wnl ecg: sr nl intervals no ischemic changes cxr: clear lungs a/p: 68 m hx htn, hld, non obs cad, here with cp. cp: -atypical, resolved -no signs acs thus far -cont tele, [place] -Await stress test result, if negative plan for d/c home w/ follow up as outpt w Dr. Francis htn: -cont home bb, ccb hld: -cont statin cad: -hx of non obs cad with myocardial bridging -plan as above. -cont bb, statin, asa
--- NOTE | 2019-08-28 11:25 | PN ---
Teaching Attending Note Name of Resident: Brenton Austin ATTENDING PHYSICIAN STATEMENT I saw and evaluated the patient. I reviewed the resident's note and discussed the case with the resident. I agree with the resident's findings and plan as documented. SUBJECTIVE: Some mild residual point tenderness L chest wall. No SOB/cough/ sputum/hemoptysis. OBJECTIVE: Afebrile, Hemodynamically Stable. Last Vital Signs Temp Pulse Resp BP Pulse Ox 97.9 F 68 20 107/72 98 08/28/19 06:00 08/28/19 06:00 08/28/19 06:00 08/28/19 06:00 08/27/19 19:00 Heart - S1, S2, RRR Lungs - clear to auscultation. Tender chest wall. Abdomen - Soft, non-tender. Bowel sounds normal. Extremities - No edema, no calf tenderness. Neuro - AAO x 3. Tone/Power normal all 4 extremities. Laboratory Results - last 24 hr 08/27/19 08/27/19 08/27/19 12:30 12:30 16:40 Creatine Kinase Troponin I < 0.02 Triglycerides 82 Cholesterol 162 Total LDL Cholesterol 73 HDL Cholesterol 69 H TSH 1.18 08/27/19 21:45 Creatine Kinase 120 Troponin I < 0.02 Triglycerides Cholesterol Total LDL Cholesterol HDL Cholesterol TSH Current Medications Generic Name Dose Route Start Last Admin Trade Name Andra PRN Reason Stop Dose Admin Aspirin 81 mg 08/28/19 10:00 Asa - PO DAILY [facility] Atorvastatin Calcium 20 mg 08/27/19 22:00 08/27/19 21:54 Lipitor - PO 20 mg HS [facility] Administration Enoxaparin Sodium 40 mg 08/27/19 11:30 08/27/19 11:50 Lovenox - SQ 40 mg DAILY [facility] Administration Metoprolol Succinate 25 mg 08/27/19 13:45 Toprol Xl - PO 08/28/19 12:14 DAILY [facility] Home Medications Medication Instructions Recorded Aspirin 81 mg PO DAILY 08/27/17 Atorvastatin Ca [Lipitor] 20 mg PO HS 02/18/18 Metoprolol Succinate [Toprol XL -] 25 mg PO DAILY 02/18/18 Amlodipine Besylate 10 mg PO DAILY 08/27/19 ASSESSMENT AND PLAN: 68 year old male with history of HTN, HLD, CAD 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 No associated SOB/ diaphoresis/lightheadedness/nausea/vomiting. No cough/sputum/hemoptysis. Normally decent exercise tolerance without symptoms, but patient reports being more SOB on less exertion yesterday while taking his walk, without associated CP. 1. Atypical CP, likely musculoskeletal. ECG - NSR, no acute changes. Trop I negative x 3. In setting of CAD history (s/p METHODS TIME ANALYST 2018 - mid lad myocardial bridge), admitted to exclude coronary cause. No Telemonitoring events Serial TropI neg Echo - normal EF, no wall motion or valvular abnormality. Cardiology consult - recommend NM stress test - negative for reversible ischemia Continue Aspirin/BB/Statin. Medically optimized for discharge. 2. HTN - continue Norvasc, Toprol XL (held prior to MIBI). 3. HLD - Continue Atorvastatin. LDL 73/HDL 69. DVT Px - Lovenox SQ
[2019-08-28 11:32] VITALS: BP 126/83; PULSE 82; TEMP 98.1
[2019-08-28] MEDS: ENOXAPARIN NA (PORCINE) 40 MG/0.4 ML DISP.SYRIN SQ SCH (11:46)
--- NOTE | 2019-08-28 15:10 | DS ---
Physical Exam: SUBJECTIVE: Patient seen and examined. Denies chest pain, SOB, abd pain, cough, or other concerns. Patient had ECHO completed yesterday and to go for stress test today. OBJECTIVE: Vital Signs Period Temp Pulse Resp BP Sys/Salas Pulse Ox Last 24 Hr 97.9 F-98.2 F 68-82 18-20 107-141/71-83 97-98 PHYSICAL EXAM GENERAL: The patient is awake, alert, and fully oriented, in no acute distress. HEAD: Normal with no signs of trauma. EYES: PERRL, extraocular movements intact, sclera anicteric, conjunctiva clear. ENT: Ears normal, nares patent, oropharynx clear without exudates, moist mucous membranes. NECK: Trachea midline, full range of motion, supple. LUNGS: Breath sounds equal, clear to auscultation bilaterally, no wheezes, no crackles, no accessory muscle use. HEART: Regular rate and rhythm, S1, S2 without murmur, rub or gallop. ABDOMEN: Soft, nontender, nondistended, normoactive bowel sounds, no guarding, no rebound, no hepatosplenomegaly, no masses. EXTREMITIES: 2+ pulses, warm, well-perfused, no edema. NEUROLOGICAL: Cranial nerves II through XII grossly intact. Normal speech, gait not observed. PSYCH: Normal mood, normal affect. SKIN: Warm, dry, normal turgor, no rashes or lesions noted. LABS Laboratory Results - last 24 hr 08/27/19 08/27/19 16:40 21:45 Creatine Kinase 120 Troponin I < 0.02 < 0.02 HOSPITAL COURSE: Date of Admission:08/27/19 Date of Discharge: 08/28/19 68 year old, pleasant male with a history of coronary artery disease, hypertension, and hyperlipidemia presented to the hospital for 5-6 hour history of chest pain and admitted for evaluation of acute coronary syndrome. Patient had no associated SOB/diaphoresis/lightheadedness/nausea/vomiting. Patient had mildly decreased exercise tolerance prior to coming in to the hospital. Patient EKG showed NSR without acute ischemic changes. Patient had negative serial troponins. Patient had an echo completed which did not show any significant abnormalities. Patient also had a stress test completed which did not show any significant abnormalities. Patient to continue home meds. Patient to follow up with cardiology for routine monitoring after discharge. Patient stable for discharge home. Minutes to complete discharge: 36 Discharge Summary Problems reviewed: Yes Reason For Visit: CHEST PAIN Current Active Problems Chest pain (Acute) Condition: Stable - Instructions Diet, Activity, Other Instructions: You presented to the hospital with chest pain. You EKG did not show any evidence of a heart attack. We did blood test which did not show any signs of damage to your heart. You were seen by cardiology and cleared for discharge as your echocardiogram and stress tests were normal. Follow up with the following physicians: 1. Please follow up with your primary care provider within one week of discharge for further management of your medical conditions. 2. Please follow up with Dr. Francis, Cardiolgy, within 1 month of discharge for further management of your heart disease. Activity and Diet 1. Please monitor your diet as you need to intake foods with less salt and fat and drink plenty of fluids. Medical Recommendations: -Continue to take your home medications as previously prescribed If you experience more chest pain, shortness of breath, nausea, vomiting, diarrhea, fevers, chills, please report to the hospital immediately Referrals: Eric Pham MD [Primary Care Provider] - Scott Francis MD [Staff Physician] - 1 Month Disposition: HOME - Home Medications Comprehensive Discharge Medication List: Ambulatory Orders Aspirin 81 mg PO DAILY 08/27/17 Atorvastatin Ca [Lipitor] 20 mg PO HS 02/18/18 Metoprolol Succinate [Toprol XL -] 25 mg PO DAILY 02/18/18 Amlodipine Besylate 10 mg PO DAILY 08/27/19 This patient is new to me today: Yes Date on this admission: 08/28/19 Emergency Visit: Yes ED Registration Date: 08/27/19 Care time: The patient presented to the Emergency Department on the above date and was hospitalized for further evaluation of their emergent condition. Critical Care patient: No - Discharge Referral Referred to [facility] No ATTENDING PHYSICIAN STATEMENT I saw and evaluated the patient. I reviewed the resident's note and discussed the case with the resident. I agree with the resident's findings and plan as documented. SUBJECTIVE: OBJECTIVE: ASSESSMENT AND PLAN:
== END 2019-08-28 15:00 | disposition home or self-care (01) | DRG 303 ==
LOC: JER 08:27 → JERBED 10:29 → OBSVTOIN 11:16 → J4W 18:42
DX: I25.10 Atherosclerotic heart disease of native coronary artery without angina pectoris (principal); R07.89 Other chest pain; I10 Essential (primary) hypertension; E78.5 Hyperlipidemia, unspecified
CPT/HCPCS: 36415; 71046-TC-FY; 78452-TC; 80053; 80061; 81003; 82550; 83721; 83735; 83880; 84100; 84443; 84484; 85025; 85610; 85730; 93005; 93010; 93017; 93306-TC; 99285-25; A9502; G0378; J7030

== ENCOUNTER 2021-01-26 04:36 | Day surgery (SDC) | payer OTHER, MEDICARE ==
[2021-01-24 17:07] VITALS: BMI 28.0
[2021-01-26 10:41] VITALS: TEMP 97.8
[2021-01-26 12:25] VITALS: BP 125/86; PULSE 67
== END 2021-01-26 11:12 | disposition home or self-care (01) ==
LOC: JASU-ENDO 04:36
PROVIDERS: ATTEND Internal Medicine Gastroenterology
PROC: 0DBL8ZX Excision of Transverse Colon, Via Natural or Artificial Opening Endoscopic, Diagnostic (ICD-10-PCS; principal; 2021-01-26 10:15)
DX: Z12.11 Encounter for screening for malignant neoplasm of colon (principal); D12.3 Benign neoplasm of transverse colon; Z86.010 Personal history of colon polyps; K57.30 Diverticulosis of large intestine without perforation or abscess without bleeding; K64.8 Other hemorrhoids
CPT/HCPCS: 88305-TC